=== PATIENT | male | born 1960 | race Caucasian/White ===

== ENCOUNTER 2017-11-27 13:40 | Inpatient (IN) | payer SELFPAY ==
[~2017-11-27] VITALS: Ht 172.7 cm; Wt 115.0 kg
[2017-11-27 14:55] LABS: HEMATOCRIT 42.1 % (38.0-50.0); HEMOGLOBIN 14.8 G/DL (12.5-16.6); MCH 30.8 PG (29.0-34.0); MCHC 35.2 G/DL (30.0-36.0); MCV 87.5 FL (86-99); PLATELET COUNT 236 K/uL (156-360); RBC DIS.WIDTH-CV 13.4 % (11.8-14.6); RBC DIS.WIDTH-SD 43.5 % (39-53); RED BLOOD COUNT 4.81 M/uL (4.00-5.50)
[2017-11-27 15:04] LABS: CHLORIDE 106 mEq/L (99-109); POTASSIUM 4.7 mEq/L (3.7-5.4); SODIUM 139 mEq/L (136-147)
[2017-11-27 15:06] LABS: GLUCOSE 180 mg/dL (70-99)
[2017-11-27 15:10] LABS: GFR ESTIMATE (CALCULATED) > 59 mL/min/ (58.99-99999); UREA NITROGEN (BUN) 13 mg/dL (9-23)
[2017-11-27 15:21] LABS: TROP-I INTERPRETATION POSITIVE
[2017-11-27 15:37] LABS: TROPONIN-I 2.51 ng/mL (0.0-0.30)
[2017-11-27] MEDS ORDERED: ASPIRIN325 MG PO (16:28)
[2017-11-27] MEDS ORDERED: CENTRUM SILVER1 EAC1 PO (16:29)
[2017-11-27 17:21] LABS: HDL CHOLESTEROL 42 MG/DL (Desirable>=40); LDL CHOLESTEROL 131 mg/dL (Desirable<100); NON-HDL CHOLESTEROL 149 mg/dL (Desirable<160); TOTAL CHOLESTEROL 191 mg/dL (Desirable<200); TRIGLYCERIDES 90 MG/DL (Normal: <150)
[2017-11-27 17:46] LABS: INTER. NORMALIZED RATIO 1.1
[2017-11-27 17:48] LABS: PTT 32.4 SEC (25-37)
[2017-11-27 18:24] VITALS: BP 139/88
[2017-11-27 18:39] VITALS: BP 139/88
[2017-11-27 20:25] LABS: TROP-I INTERPRETATION POSITIVE; TROPONIN-I 2.83 ng/mL (0.0-0.30)
[2017-11-27 20:30] VITALS: BP 134/83
[2017-11-28] VITALS (8 sets, daily range): BP systolic 88–108; BP diastolic 60–79
[2017-11-28 05:33] LABS: HEMATOCRIT 39.7 % (38.0-50.0); HEMOGLOBIN 13.5 G/DL (12.5-16.6); MCV 88.2 FL (86-99); PLATELET COUNT 239 K/uL (156-360); RBC DIS.WIDTH-CV 13.6 % (11.8-14.6); WHITE BLOOD COUNT 6.7 K/uL (4.1-10.2)
[2017-11-28 05:55] LABS: ALBUMIN 3.9 G/DL (3.2-4.8); ALKALINE PHOSPHATASE 46 IU/L (3-129); ALT (GPT) 23 IU/L (3-49); AST (GOT) 30 IU/L (2-34); CHLORIDE 103 MEQ/L (99-109); GFR ESTIMATE (CALCULATED) > 59 mL/min/ (58.99-99999); GLUCOSE 131 mg/dL (70-99); POTASSIUM 4.5 MEQ/L (3.7-5.4); SODIUM 137 MEQ/L (136-147); TOTAL BILIRUBIN 0.7 MG/DL (0.0-1.0); TOTAL PROTEIN 6.6 G/DL (6.4-8.3); UREA NITROGEN (BUN) 13 mg/dL (9-23)
[2017-11-28 05:56] LABS: TROP-I INTERPRETATION POSITIVE; TROPONIN-I 4.75 ng/mL (0.0-0.30)
[2017-11-28 09:40] LABS: HEMOGLOBIN A1c (GLYCOHEMOGLOB) 6.8 % (Below 5.7)
[2017-11-28 18:13] LABS: TROP-I INTERPRETATION POSITIVE; TROPONIN-I 3.45 ng/mL (0.0-0.30)
[2017-11-29] VITALS: BP 97/62
[2017-11-29 01:30] LABS: TROP-I INTERPRETATION POSITIVE
[2017-11-29 01:31] LABS: TROPONIN-I 3.56 ng/mL (0.0-0.30)
[2017-11-29 04:46] VITALS: BP 116/67
[2017-11-29 04:48] VITALS: BP 116/67
[2017-11-29 05:41] LABS: HEMOGLOBIN 12.8 G/DL (12.5-16.6); MCH 29.9 PG (29.0-34.0); MCHC 33.7 G/DL (30.0-36.0); MCV 88.8 FL (86-99); PLATELET COUNT 233 K/uL (156-360); RBC DIS.WIDTH-CV 13.5 % (11.8-14.6); RBC DIS.WIDTH-SD 43.8 % (39-53); RED BLOOD COUNT 4.28 M/uL (4.00-5.50); WHITE BLOOD COUNT 7.4 K/uL (4.1-10.2)
[2017-11-29 06:06] LABS: TROP-I INTERPRETATION POSITIVE; TROPONIN-I 3.35 ng/mL (0.0-0.30)
[2017-11-29 09:00] VITALS: BP 113/72
[2017-11-29 12:12] VITALS: BP 103/58
[2017-11-29] MEDS ORDERED: CLOPIDOGREL75 MG PO (15:14)
[2017-11-29] MEDS ORDERED: ATORVASTATIN CA80 MG PO (15:14)
[2017-11-29] MEDS ORDERED: ASPIR-LOW81 MG PO (15:14)
[2017-11-29] MEDS ORDERED: METFORMIN HCL500 MG PO (15:14)
== END 2017-11-29 16:29 | disposition home or self-care (01) | DRG 229 ==
LOC: EME 13:40 → EDOF 16:01 → 4EAST 16:01 → ENRESERV 16:15 → 4EAST 18:10 → ENRESERV 11-28 12:20 → CANRESERV 11-28 12:20 → 4EAST 11-29 16:29
PROVIDERS: Emergency Medicine; Hospitalist; Internal Medicine Cardiovascular Disease
DX: I21.19 ST elevation (STEMI) myocardial infarction involving other coronary artery of inferior wall (principal); I25.10 Atherosclerotic heart disease of native coronary artery without angina pectoris; R00.1 Bradycardia, unspecified; E11.9 Type 2 diabetes mellitus without complications; E78.5 Hyperlipidemia, unspecified; K21.9 Gastro-esophageal reflux disease without esophagitis; E66.01 Morbid (severe) obesity due to excess calories; Z68.41 Body mass index [BMI] 40.0-44.9, adult; Z79.82 Long term (current) use of aspirin; Z87.891 Personal history of nicotine dependence
CPT/HCPCS: 71046; 80048; 80053; 80061; 83036; 84484; 85027; 85347; 85610; 85730; 93005; 93306; 99281; 99285; C1725; C1769; C1887; C1894; J0153; J0461; J1644; J2250; J2405; J3010; J3246; J7030; J7050; S0028